=== PATIENT | female | born 1970 ===

== ENCOUNTER 2023-02-14 18:26 | Emergency (ER) | payer SELFPAY ==
[~2023-02-14] VITALS: Ht 157.5 cm; Wt 81.7 kg
[2023-02-14 19:45] VITALS: BP 144/108
[2023-02-14] MEDS ORDERED: PRAM.125 PO (19:48)
[2023-02-14] MEDS ORDERED: FLUT1DIS2 INH (19:49)
[2023-02-14] MEDS ORDERED: ALBU90OI INH (19:50)
== END 2023-02-14 20:14 | disposition left against medical advice (07) ==
LOC: ER 18:26
DX: Z53.21 Procedure and treatment not carried out due to patient leaving prior to being seen by health care provider (principal)